=== PATIENT | female | born 2000 | race African-American/Black ===

== ENCOUNTER 2021-07-13 23:43 | Emergency (ER) | payer SELFPAY ==
[2021-07-14] MEDS ORDERED: Lidocaine 1% (PF) 30 ML VIAL ONE (03:49)
== END 2021-07-14 05:23 | disposition home or self-care (01) ==
LOC: CSHERS 23:43
DX: L02.411 Cutaneous abscess of right axilla (principal)
CPT/HCPCS: 10060; J2001